=== PATIENT | male | born 1975 | race African-American/Black ===

== ENCOUNTER 2024-03-23 02:40 | Emergency (ER) | payer SELFPAY ==
[~2024-03-23] VITALS: Ht 170.2 cm; Wt 77.0 kg
[2024-03-23 03:01] VITALS: BP 124/88; PULSE 91; RESP 18; TEMP 37.1; O2SAT 100
== END 2024-03-23 04:02 | disposition left against medical advice (07) ==
LOC: ER 02:40
DX: Z53.21 Procedure and treatment not carried out due to patient leaving prior to being seen by health care provider (principal)